=== PATIENT | male | born 1945 | race Caucasian/White ===

== ENCOUNTER → 2017-01-08 | Outpatient (CLI) | payer MEDICARE ==
[2017-01-10 08:35] LABS: ALANINE AMINOTRANSFERASE 30 U/L (21-72); ALBUMIN 4.2 g/dL (3.5-5.0); ALKALINE PHOSPHATASE 77 U/L (38-126); ANION GAP 10 (5-19); ASPARTATE AMINO TRANSFERASE 25 U/L (17-59); BILIRUBIN,DIRECT 0.3 mg/dL (0.0-0.4); BILIRUBIN,TOTAL 0.7 mg/dL (0.2-1.3); BLOOD UREA NITROGEN 14 mg/dL (7-20); CALCIUM 9.1 mg/dL (8.4-10.2); CARBON DIOXIDE 27 mmol/L (22-30); CHLORIDE 105 mmol/L (98-107); CHOLESTEROL 91.33 mg/dL (0-200); CREATININE RESULT 0.96 mg/dL (0.52-1.25); Direct HDL 35 mg/dL (>40); GLUCOSE 93 mg/dL (75-110); POTASSIUM 4.4 mmol/L (3.6-5.0); SODIUM 142.1 mmol/L (137-145); TOTAL PROTEIN 7.1 g/dL (6.3-8.2); TRIGLYCERIDES 100 mg/dL (<150)
[2017-01-10 08:46] LABS: DIRECT LDL 39 mg/dL (<100)
== END ==
LOC: OD 10:12
PROVIDERS: ATTEND Internal Medicine Cardiovascular Disease
DX: E78.2 Mixed hyperlipidemia (principal); Z79.899 Other long term (current) drug therapy
CPT/HCPCS: 36415; 80048; 80061; 80076; 83735

== ENCOUNTER → 2017-12-11 | Outpatient (CLI) | payer MEDICARE ==
[2017-12-11 08:52] LABS: ABSOLUTE BASOPHILS # (AUTO) 0.1 10^3/uL (0.0-0.2); ABSOLUTE EOSINOPHILS # (AUTO) 0.1 10^3/uL (0.0-0.6); ABSOLUTE LYMPHOCYTES (AUTO) 2.4 10^3/uL (0.5-4.7); ABSOLUTE MONOCYTES (AUTO) 0.7 10^3/uL (0.1-1.4); ABSOLUTE NEUT (AUTO) 2.4 10^3/uL (1.7-8.2); EOSINOPHILS % (AUTO) 1.1 % (0-6); HEMATOCRIT 45.7 % (37.9-51.0); HEMOGLOBIN 15.6 g/dL (13.5-17.0); LYMPHOCYTES % (AUTO) 42.4 % (13-45); MEAN CORPUSCULAR HEMOGLOBIN 30.7 pg (27.0-33.4); MEAN CORPUSCULAR HGB CONC 34.1 g/dL (32.0-36.0); MEAN CORPUSCULAR VOLUME 90 fl (80-97); MONOCYTES % (AUTO) 12.2 % (3-13); PLATELET COUNT 201 10^3/uL (150-450); RED BLOOD COUNT 5.08 10^6/uL (4.35-5.55); RED CELL DISTRIBUTION WIDTH 14.8 % (11.5-14.0); SEGMENTED NEUTROPHILS % (AUTO) 43.3 % (42-78); TOTAL CELLS COUNTED % (AUTO) 100 %; WHITE BLOOD COUNT 5.6 10^3/uL (4.0-10.5)
[2017-12-11 09:13] LABS: ALANINE AMINOTRANSFERASE 40 U/L (21-72); ALBUMIN 4.3 g/dL (3.5-5.0); ALKALINE PHOSPHATASE 87 U/L (38-126); ANION GAP 11 (5-19); ASPARTATE AMINO TRANSFERASE 26 U/L (17-59); BILIRUBIN,DIRECT 0.4 mg/dL (0.0-0.4); BILIRUBIN,TOTAL 0.5 mg/dL (0.2-1.3); BLOOD UREA NITROGEN 16 mg/dL (7-20); CALCIUM 9.5 mg/dL (8.4-10.2); CARBON DIOXIDE 29 mmol/L (22-30); CHLORIDE 106 mmol/L (98-107); CHOLESTEROL 159.72 mg/dL (0-200); GLUCOSE 101 mg/dL (75-110); POTASSIUM 5.1 mmol/L (3.6-5.0); SODIUM 146.3 mmol/L (137-145); TOTAL PROTEIN 7.4 g/dL (6.3-8.2); TRIGLYCERIDES 198 mg/dL (<150); URIC ACID 6.1 mg/dL (3.5-8.5)
[2017-12-11 09:24] LABS: DIRECT LDL 85 mg/dL (<100)
[2017-12-11 09:27] LABS: VLDL CHOLESTEROL 39.6 mg/dL (10-31)
== END ==
LOC: OD 08:13
PROVIDERS: ATTEND Physician Assistant
DX: E78.5 Hyperlipidemia, unspecified (principal); E79.0 Hyperuricemia without signs of inflammatory arthritis and tophaceous disease; I10 Essential (primary) hypertension
CPT/HCPCS: 36415; 80053; 80061; 84550; 85025

== ENCOUNTER 2019-10-29 11:34 | Emergency (ER) | payer MEDICARE ==
[2019-10-29] MEDS ORDERED: MECLIZINE HCL 25 MG TABLET PO ONE (12:15)
[2019-10-29] MEDS ORDERED: ONDANSETRON 4 MG TAB.RAPDIS PO ONE (12:17)
--- NOTE | 2019-10-29 12:24 | ER Document Report ---
ED Fall - General Chief Complaint: Head Injury without LOC Stated Complaint: FALL,NAUSEA,HEADACHE Time Seen by Provider: 10/29/19 11:57 Primary Care Provider: LEILANI BUCHANAN MD [Primary Care Provider] - 11/01/19 Mode of Arrival: Ambulatory Information source: Patient Notes: Patient states that 2 days ago he was in the yard doing work in a mastiff was running behind him and knocked him over causing him to fall backwards landing on concrete. Patient states that he did hit his head on the pavement and then it bounced and hit again. Patient states that yesterday he started to develop some dizziness with sudden movements that has been off and on. Patient does complain of some nausea although denies any vomiting. Patient denies taking any blood thinning medications. TRAVEL OUTSIDE OF THE [place] IN LAST 30 DAYS: No - HPI Occurred: Other - 2 days ago Where: Outdoors Context: Tripped Associated symptoms: Other - Dizziness Location of injury/pain: Head. No: Back, Neck Quality of pain: Achy Pain Level: 1 - Related data Allergies/Adverse Reactions: No Known Allergies Allergy (Verified 12/07/13 10:57) Home Medications: Allopurinol, Atorvastatin, Lasix Past Medical History - General Information source: Patient - Social History Smoking Status: Never Smoker Frequency of alcohol use: None Drug Abuse: None Occupation: Retired Lives with: Spouse/Significant other Family History: None Patient has suicidal ideation: No Patient has homicidal ideation: No - Past Medical History Cardiac Medical History: Reports: Hx Congestive Heart Failure, Hx Heart Attack, Hx Hypertension Denies: Hx Coronary Artery Disease Pulmonary Medical History: Denies: Hx Asthma, Hx Bronchitis, Hx COPD, Hx Pneumonia Neurological Medical History: Denies: Hx Cerebrovascular Accident, Hx Seizures Musculoskeletal Medical History: Reports Hx Arthritis - back, knees, Reports Hx Gout Psychiatric Medical History: Reports: Hx Depression Past Surgical History: Reports: Hx Genitourinary Surgery, Hx Orthopedic Surgery - bilateral knee and shoulder replace, 2 back surgery - Immunizations Hx Diphtheria, Pertussis, Tetanus Vaccination: No Hx Pneumococcal Vaccination: 07/21/12 Review of Systems - Review of Systems Constitutional: No symptoms reported. denies: Fever, Recent illness EENT: No symptoms reported Cardiovascular: Dizziness. denies: Chest pain Respiratory: No symptoms reported. denies: Cough, Short of breath Gastrointestinal: Nausea. denies: Abdominal pain, Diarrhea, Vomiting Genitourinary: No symptoms reported Male Genitourinary: No symptoms reported Musculoskeletal: No symptoms reported. denies: Neck pain Skin: No symptoms reported Hematologic/Lymphatic: No symptoms reported Neurological/Psychological: Headaches. denies: Confusion, Weakness, Lost consciousness Physical Exam - Vital signs Vitals: Temp Pulse Resp BP Pulse Ox 98.1 F 68 20 152/84 H 95 10/29/19 11:42 10/29/19 11:42 10/29/19 11:42 10/29/19 11:42 10/29/19 11:42 - General General appearance: Appears well, Alert In distress: None - HEENT Head: Normocephalic, Atraumatic, Tenderness - Occipital. No: Abrasions, Andrade's sign, Racoon's eyes Eyes: Normal Conjunctiva: Normal Extraocular movements intact: Yes Eyelashes: Normal Pupils: PERRL Nasal: Normal Mouth/Lips: Normal Pharynx: Normal Neck: Normal, Supple, Other - No midline spinal tenderness, step-off or deformity. No: Lymphadenopathy - Respiratory Respiratory status: No respiratory distress Chest status: Nontender Breath sounds: Normal. No: Rales, Rhonchi, Stridor, Wheezing Chest palpation: Normal - Cardiovascular Rhythm: Regular Heart sounds: S1 appreciated, S2 appreciated - Back Back: Normal, Nontender. No: Vertebra tenderness - Extremities General upper extremity: Normal inspection, Normal strength General lower extremity: Normal inspection, Normal strength - Neurological Neuro grossly intact: Yes Cognition: Normal Ben Coma Scale Eye Opening: Spontaneous Ben Coma Scale Verbal: Oriented Ben Coma Scale Motor: Obeys Commands Ben Coma Scale Total: 15 Speech: Normal. No: Dysarthria, Expressive aphasia, Receptive aphasia Cranial nerves: Normal. No: Facial palsy, Gaze palsy, Tongue deviation Cerebellar coordination: Normal, Heel-blanc, Finger-nose rhombey, Rapid alt. 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 Agrees with plan for basic labs, EKG and does recommend CT scan imaging at this time. 10/29/19 14:21 Patient denies any nausea or vomiting at this time. Patient states that he does have occasional dizzy episodes with sudden movements. The symptoms resolve when patient does not have sudden movements. Patient reports minimal headache pain at this time. Patient with benign diagnostic evaluation without any acute findings on CT scan. Patient without any focal neurologic deficits at this time. Discussed with patient concerned about possible postconcussive symptoms. Patient encouraged to see his primary doctor Friday for recheck. Discussed worsening symptoms such as worsening headache pain, worsening dizziness, vomiting, or any new concerning symptoms that he should return immediately for further evaluation. - Vital Signs Vital signs: Temp Pulse Resp BP Pulse Ox 98.1 F 68 20 152/84 H 95 10/29/19 11:42 10/29/19 11:42 10/29/19 11:42 10/29/19 11:42 10/29/19 11:42 - Laboratory Result Diagrams: 10/29/19 12:30 10/29/19 12:30 Laboratory results interpreted by me: 10/29/19 10/29/19 12:30 12:30 RDW 14.3 H Harvey % (Auto) 13.6 H Glucose 113 H Labs- Entire Visit 10/29/19 10/29/19 12:30 12:30 WBC 6.2 RBC 5.04 Hgb 15.7 Hct 44.5 MCV 88 MCH 31.2 MCHC 35.3 RDW 14.3 H Plt Count 223 Lymph % (Auto) 42.1 Harvey % (Auto) 13.6 H Eos % (Auto) 0.7 Baso % (Auto) 1.2 Absolute Neuts (auto) 2.6 Absolute Lymphs (auto) 2.6 Absolute Monos (auto) 0.8 Absolute Eos (auto) 0.0 Absolute Basos (auto) 0.1 Seg Neutrophils % 42.4 Sodium 138.4 Potassium 4.6 Chloride 107 Carbon Dioxide 23 Anion Gap 8 BUN 18 Creatinine 0.92 Est GFR ( Amer) > 60 Est GFR (MDRD) Non-Af > 60 Glucose 113 H Calcium 9.1 - Diagnostic Test Radiology reviewed: Reports reviewed - EKG Interpretation by Me EKG shows normal: Sinus rhythm Voltage: Consistant with LVH Additional EKG results interpreted by me: 10/29/19 13:[address] elevation, QTc 487 Discharge - Discharge Clinical Impression: Dizziness, Post concussion syndrome, Hx of head injury Condition: Stable Disposition: HOME, SELF-CARE Instructions: Acetaminophen, Nausea or Vomiting, Nonspecific ([facility]), Post- Concussion Syndrome ([facility]) Additional Instructions: Return immediately for any new or worsening symptoms: Worsening dizziness, increased headache pain, vomiting, or any new concerning symptoms Followup with your primary care provider, call to make a follow-up appointment for Friday. Take Tylenol [id number] as needed for headache pain Prescriptions: Ondansetron [Zofran Odt 4 mg Tablet] 1 tab PO Q6H PRN #8 tab.rapdis PRN Reason: Referrals: LEILANI BUCHANAN MD [Primary Care Provider] - 11/01/19
[2019-10-29 12:55] LABS: ABSOLUTE BASOPHILS # (AUTO) 0.1 10^3/uL (0.0-0.2); ABSOLUTE LYMPHOCYTES (AUTO) 2.6 10^3/uL (0.5-4.7); ABSOLUTE MONOCYTES (AUTO) 0.8 10^3/uL (0.1-1.4); ABSOLUTE NEUT (AUTO) 2.6 10^3/uL (1.7-8.2); BASOPHILS % (AUTO) 1.2 % (0-2); EOSINOPHILS % (AUTO) 0.7 % (0-6); HEMATOCRIT 44.5 % (37.9-51.0); HEMOGLOBIN 15.7 g/dL (13.5-17.0); LYMPHOCYTES % (AUTO) 42.1 % (13-45); MEAN CORPUSCULAR HEMOGLOBIN 31.2 pg (27.0-33.4); MEAN CORPUSCULAR HGB CONC 35.3 g/dL (32.0-36.0); MEAN CORPUSCULAR VOLUME 88 fl (80-97); MONOCYTES % (AUTO) 13.6 % (3-13); PLATELET COUNT 223 10^3/uL (150-450); RED BLOOD COUNT 5.04 10^6/uL (4.35-5.55); RED CELL DISTRIBUTION WIDTH 14.3 % (11.5-14.0); SEGMENTED NEUTROPHILS % (AUTO) 42.4 % (42-78); TOTAL CELLS COUNTED % (AUTO) 100 %; WHITE BLOOD COUNT 6.2 10^3/uL (4.0-10.5)
[2019-10-29 13:04] LABS: ANION GAP 8 (5-19); BLOOD UREA NITROGEN 18 mg/dL (7-20); CALCIUM 9.1 mg/dL (8.4-10.2); CARBON DIOXIDE 23 mmol/L (22-30); CHLORIDE 107 mmol/L (98-107); GLUCOSE 113 mg/dL (75-110); POTASSIUM 4.6 mmol/L (3.6-5.0)
--- NOTE | 2019-10-29 14:10 | RADIOLOGY REPORT (SQ) ---
EXAM DESCRIPTION: CT HEAD WITHOUT IMAGES COMPLETED DATE/TIME: 10/29/2019 1:44 pm REASON FOR STUDY: head injury, dizzy COMPARISON: None. TECHNIQUE: Axial images acquired through the brain without intravenous contrast. Images reviewed wi th bone, brain and subdural windows. Additional sagittal and coronal reconstructions were generated. Images stored on PACS. All CT scanners at this facility use dose modulation, iterative reconstruction, and/or weight based d osing when appropriate to reduce radiation dose to as low as reasonably achievable (ALARA). [facility]: Dose Right [facility]: CareDose [facility]: Dose Right [facility]: Teradose 4D [facility]: Smart [employer] RADIATION DOSE: CT Rad equipment meets quality standard of care and radiation dose reduction techniq ues were employed. CTDIvol: 53.2 mGy. DLP: 1070 mGy-cm. mGy. LIMITATIONS: None. FINDINGS: VENTRICLES: Normal size and contour. CEREBRUM: No masses. No hemorrhage. No midline shift. No evidence for acute infarction. Normal gra y/white matter differentiation. No areas of low density in the white matter. CEREBELLUM: No masses. No hemorrhage. No alteration of density. No evidence for acute infarction. EXTRAAXIAL SPACES: No fluid collections. No masses. ORBITS AND GLOBE: No intra- or extraconal masses. Normal contour of globe without masses. CALVARIUM: No fracture. PARANASAL SINUSES: No fluid or mucosal thickening. SOFT TISSUES: No mass or hematoma. OTHER: No other significant finding. IMPRESSION: NORMAL BRAIN CT WITHOUT CONTRAST. EVIDENCE OF ACUTE STROKE: NO. COMMENT: Quality ID # [id number]: Final reports with documentation of one or more dose reduction techniques (e.g., Automated exposure control, adjustment of the mA and/or kV according to patient size, use of iterative reconstruction technique) TECHNICAL DOCUMENTATION: JOB ID: [id number] 2010 [employer]- All Rights Reserved Reading location - IP/workstation name: [email or web address]
[2019-10-29] MEDS ORDERED: ACETAMINOPHEN 325 MG TABLET PO ONE (14:21)
[2019-10-29 14:37] VITALS: BP 154/91
--- NOTE | 2019-10-29 20:00 | EKG REPORT ---
SEVERITY:- ABNORMAL ECG - SINUS RHYTHM LEFT VENTRICULAR HYPERTROPHY TALL R WAVE IN V2, CONSIDER RVH OR PMI BORDERLINE PROLONGED QT INTERVAL : Confirmed by: Ivette Weinstein MD 29-Oct-2019 20:00:01
== END 2019-10-29 14:37 | disposition home or self-care (01) ==
LOC: ER 11:34
DX: F07.81 Postconcussional syndrome (principal); R42 Dizziness and giddiness; W18.39XA Other fall on same level, initial encounter; Y93.H9 Activity, other involving exterior property and land maintenance, building and construction; Y92.007 Garden or yard of unspecified non-institutional (private) residence as the place of occurrence of the external cause; I11.0 Hypertensive heart disease with heart failure; I50.9 Heart failure, unspecified; I25.2 Old myocardial infarction
CPT/HCPCS: 93005; 99284; 36415; 85025; 80048; 70450; 93010; A9270 ×3; S0119